=== PATIENT | female | born 1975 | race Caucasian/White ===

== ENCOUNTER → 2019-11-29 09:15 | Outpatient (BNVA) | payer OTHER, SELFPAY | PROVIDERS: Family Provider Nurse Practitioner; PCP Nurse Practitioner; Visit Provider Obstetrics & Gynecology | DX: Z01.419 Encounter for gynecological examination (general) (routine) without abnormal findings (principal); D06.9 Carcinoma in situ of cervix, unspecified; E89.40 Asymptomatic postprocedural ovarian failure | CPT/HCPCS: 88175 ==

== ENCOUNTER 2020-03-27 14:36 | Outpatient (CLI) | payer OTHER, SELFPAY ==
--- NOTE | 2020-03-27 14:42 | MM_ITS ---
WS: [id number] BILATERAL DIGITAL SCREENING MAMMOGRAPHY WITH CAD CLINICAL INFORMATION: SCREENING HISTORY: Screening mammogram. No current complaints. COMPARISON: TECHNIQUE: Bilateral CC and MLO views. FINDINGS: The breasts are composed of heterogeneous fibroglandular density tissue, which can limit the detectio n of small underlying mass lesions. No suspicious mass, asymmetry, calcifications, or architectural d istortion. No evidence of malignancy. MM/[id number] IMPRESSION: BI-RADS: 1-Negative FOLLOW UP: 1 Year Follow-up Recommend return to annual screening mammography.
== END 2020-03-27 14:37 | disposition home or self-care (01) ==
LOC: RADSHAW 14:41
PROVIDERS: PCP Nurse Practitioner; Visit Provider Obstetrics & Gynecology
DX: Z12.31 Encounter for screening mammogram for malignant neoplasm of breast (principal)
CPT/HCPCS: 77067

== ENCOUNTER → 2021-12-17 10:49 | Outpatient (BNVA) | payer OTHER, SELFPAY | PROVIDERS: PCP Nurse Practitioner; Visit Provider Obstetrics & Gynecology | DX: D06.9 Carcinoma in situ of cervix, unspecified (principal); N95.1 Menopausal and female climacteric states; Z12.39 Encounter for other screening for malignant neoplasm of breast | CPT/HCPCS: 87624 ==

== ENCOUNTER 2022-01-20 11:08 | Outpatient (CLI) | payer OTHER, SELFPAY ==
--- NOTE | 2022-01-20 11:22 | MM_ITS ---
WS: [id number] BILATERAL SCREENING DIGITAL BREAST TOMOSYNTHESIS MAMMOGRAM WITH CAD HISTORY: Z12.39 - Encounter for other screening for malignant neoplasm. COMPARISON: 03/27/2020, 018 Bilateral CC and MLO views with tomosynthesis and synthetic mammography submitted. Computer aided det ection analyzed. Breast composition: The breasts are heterogeneously dense, which may obscure small masses. No suspici ous masses, microcalcifications or architectural distortion. MM/[id number] IMPRESSION: BI-RADS: 1-Negative FOLLOW UP: 1 Year Follow-up
== END 2022-01-20 11:09 | disposition home or self-care (01) ==
PROVIDERS: PCP Nurse Practitioner; Visit Provider Obstetrics & Gynecology
DX: Z12.39 Encounter for other screening for malignant neoplasm of breast (principal)
CPT/HCPCS: 77063; 77067

== ENCOUNTER 2023-09-21 12:54 | Outpatient (CLI) | payer OTHER, SELFPAY ==
--- NOTE | 2023-09-21 13:08 | XRR_ITS ---
PROCEDURE INFORMATION: Exam: XR Left Wrist Exam date and time: 09/21/2023 1:10 PM Age: 47 years old Clinical indication: Pain; Wrist; Left; Additional info: Lt. Wrist pain TECHNIQUE: Imaging protocol: Radiologic exam of the left wrist. Views: 3 or more views. COMPARISON: No relevant prior studies available. FINDINGS: Bones/joints: Well-defined lucent lesion in the scaphoid, likely an intraosseous cyst. No acute fracture or dislocation. Joint spaces are preserved. Soft tissues: Normal. XR/XR wrist LT min 3V* [id number] IMPRESSION: No acute fracture or dislocation.
== END 2023-09-21 12:55 | disposition home or self-care (01) ==
LOC: RAD 12:55
PROVIDERS: PCP Nurse Practitioner; Visit Provider Nurse Practitioner Family
DX: M65.4 Radial styloid tenosynovitis [de Quervain] (principal); M25.532 Pain in left wrist
CPT/HCPCS: 73110

== ENCOUNTER 2024-02-17 20:49 | Emergency (ER) | payer OTHER, SELFPAY ==
--- NOTE | 2024-02-17 20:52 | XRR_ITS ---
PROCEDURE INFORMATION: Exam: XR Left Ankle Exam date and time: 02/17/2024 9:38 PM Age: 48 years old Clinical indication: Injury or trauma; Blunt trauma; Left; Patient HX: Patient sustained twisting injury to ankle due to falling off of porch. TECHNIQUE: Imaging protocol: Radiologic exam of the left ankle. Views: 3 or more views. COMPARISON: No relevant prior studies available. FINDINGS: Bones/joints: Chronic sclerotic calcification seen along inferior medial aspect of the talus on the AP view. Soft tissues: Normal. XR/XR ankle LT min 3V* [id number] IMPRESSION: No acute findings. Consider further evaluation with a CT scan if concern for fracture remains.
[2024-02-17 21:04] VITALS: BP 95/59; PULSE 105; RESP 18; TEMP 36.9; O2SAT 95; BMI 24.7
--- NOTE | 2024-02-17 21:18 | ED_ITS ---
HPI - Extremity Problem General: Chief complaint: Extremity Injury, Lower Stated complaint: Fell Left Ankle Injury Time Seen by Provider: 02/17/24 20:54 History of Present Illness: Patient is a 48-year-old female who comes into the emergency department complaining of left ankle pain approximately 2 hours prior to arrival. Patient states she jumped off a friend's porch and had an inversion ankle injury. She states she has taken Tylenol and has been icing since, but pain and swelling have only increased. She has remained ambulatory. When I ask her about history of previous fractures or injuries, she states I have bad ankles. No other symptoms to report at this time. She states the pain is primarily to the lateral malleolus with some radiation distally into the foot, currently is a sharp pain. MD Complaint: joint swelling and joint pain Onset (ago): hour(s) Pain Consistency: constant Location: left Quality: sharp Radiation: distal Relieving factors: cold therapy and rest Exacerbating factors: range of motion, weight bearing and palpation Associated symptoms: Reports no associated symptoms; Deny chest pain, fever(s) or rash Review of Systems General: Reports: 10 or more systems reviewed and unremarkable except in HPI and below Const: Denies: fever(s), chills or fatigue Eyes: Denies: change in vision ENMT: Denies: throat pain, ear or mastoid pain or nasal discharge Card: Denies: chest pain, palpitations, swelling of feet/ankles or lightheadedness Resp: Denies: dyspnea, productive cough or wheezing GI: Denies: abdominal pain, nausea, vomiting, diarrhea or constipation : Denies: flank pain, difficulty voiding, dysuria or urinary frequency Musc: Reports: joint pain and joint swelling; Denies: neck pain or back pain Skin/Breast: Denies: rash Neuro: Denies: headache(s), numbness in extremities or weakness in extremities PFSH ED PFSH: Medical History Well woman exam with routine gynecological exam Depression with anxiety Surgical menopause [facility] with BSO on 07/17/2018. Patient on ERT. Cervical intraepithelial neoplasia III Patient with STEPHAN-3 initially treated by [facility] and then [facility] in 07/17/2018. Surgical History History of total vaginal hysterectomy (07/17/18) With BSO. Dx: STEPHAN-3 of endocervix. [place] [facility] [place] History of conization of cervix (03/06/18) [facility]. Dx: STEPHAN-3 of endocervix. [place] Dr. Vasquez [place] [facility] [place]. History of tonsillectomy and adenoidectomy (~2002) History of tympanostomy (~1999) History of section, low transverse (08/10/98) Primary LTCS. Dx: Breech. Delivered by Dr. Farley at [facility] in [place], [place]. Family History Grandmother Heart disease maternal Diabetes maternal Uterine cancer maternal grandmother- 70's great maternal grandmother- 70's Ovarian cancer maternal great grandmother 70's Grandfather Hyperlipidemia maternal Father Hypertension Family/Other Uterine cancer maternal aunt 50's Denies family history of Colon cancer Clotting disorder Breast cancer Anesthesia complication Bleeding disorder Thyroid disease Stroke Social History Smoking and tobacco/nicotine status: never used tobacco/nicotine Alcohol intake: current Alcohol intake frequency: few times a month Substance/Drug Use: never Physical Exam Const: COMMON NORMALS: no acute distress, patient oriented x3 and no limitations GENERAL APPEARANCE: cooperative, comfortable and well developed ORIENTATION/CONSCIOUSNESS: Yes awake, Yes oriented to person, Yes oriented to place and Yes oriented to time HENMT: COMMON NORMALS: normocephalic, atraumatic and hearing grossly normal bilaterally HEAD & SCALP: normocephalic and atraumatic Eye: COMMON NORMALS: Equal, round and reactive pupils present, EOMs intact bilaterally and conjunctivae normal CONJUNCTIVA: Yes conjunctivae normal PUPIL: Yes Equal, round and reactive pupils present Neck/C-Spine: COMMON NORMALS: full ROM, supple and no JVD Resp: COMMON NORMALS: normal respiratory effort, No retractions, No use of accessory muscles and clear to auscultation bilaterally AUSCULTATION: clear to auscultation bilaterally Cardio: COMMON NORMALS: no JVD, regular rate, regular rhythm, No clicks present (Cardio), No murmurs present (Cardio) and No rub (Cardio) RATE: regular rate RHYTHM: regular rhythm Extremity: NARRATIVE EXTREMITY EXAM: The left lateral malleolus is edematous and tender to palpation. Small amount of bruising noted just posterior to the lateral malleolus. Antalgic gait noted on entry into the emergency department. Distal neurovascular status intact. Negative calcaneal squeeze and ankle squeeze. 2+ DP/PT pulses. Neuro: COMMON NORMALS: patient oriented x3, moves all extremities, no focal motor deficits and no sensory deficits noted SENSORIUM/ORIENTATION: Yes oriented to person, Yes oriented to place and Yes oriented to time Skin: COMMON NORMALS: no rashes or lesions noted GENERAL SKIN EXAM: no rashes or lesions noted Course Vital Signs: Vital signs: Vital Signs Temperature 98.4 F 02/17/24 21:04 Pulse Rate 105 H 02/17/24 21:04 Respiratory Rate 18 02/17/24 21:04 Blood Pressure 95/59 02/17/24 21:04 Pulse Oximetry 95 02/17/24 21:04 Oxygen Delivery Me thod Room Air 02/17/24 21:04 MDM - Extremity (Nontraumatic) Medical Decision Making Patient comes into the emergency department for left ankle injury a couple hours prior to arrival. She was ambulatory into the emergency department. Physical examination showed a swollen left foot at the lateral malleolus. X-ray of the ankle did not show any acute findings, and my suspicion at this time as patient is dealing with an ankle sprain, potentially high ankle sprain. She will be given crutches and instructed to be weightbearing as tolerated, and if her symptoms do not improve then she will follow-up with primary care for potential orthopedic referral. She will also enact RICE therapy and we will wrap her foot prior to discharge. Reasons to return were discussed and patient will be discharged home. Lab Data Radiology Impressions Ankle X-Ray 02/17/24 20:52 IMPRESSION: No acute findings. Consider further evaluation with a CT scan if concern for fracture remains. All radiology interpretation(s) finalized by discharge Discharge Plan Discharge Patient Disposition: Home Clinical Impression: Left ankle sprain Qualifiers: Encounter type: initial encounter Involved ligament of ankle: anterior talofibular ligament Qualified Code(s): S93.492A - Sprain of other ligament of left ankle, initial encounter Condition: Stable Prescriptions: No Action candesartan 8 mg tablet 8 mg PO DAILY estradiol 1 mg tablet 1.5 mg PO DAILY 30 Days Qty: 45 0RF Rx Instructions: increased to 1.5 mg daily on 12/17/2021 montelukast [Singulair] 10 mg tablet 10 mg PO DAILY ibuprofen 800 mg tablet 800 mg PO Q8H PRN alprazolam 0.5 mg tablet 0.25 mg PO .nightly Zyrtec 10 mg capsule 30 mg PO DAILY paroxetine HCl [Paxil] 20 mg tablet 30 mg PO DAILY metronidazole 500 mg tablet 500 mg PO BID 7 Days Qty: 14 0RF Discharge Orders: Discharge ED (Routine); Ordered 02/17/24 Ordered By: Romeo Sevilla Referrals: Sara Canales FNP [Primary Care Provider] - Discharge Diet: Usual diet Discharge Activity: Limit activity as instructed Patient Instructions: Ankle Sprain (ED) Activity Restrictions/Additional Instructions: Weightbearing as tolerated. Gently increase your range of motion with the left foot. Rest, ice, compression, and elevation. Take Tylenol or ibuprofen for pain. If your symptoms do not improve, please follow-up with primary care for orthopedic referral. Return with any new or worsening symptoms otherwise. Coding Level of Care Code ED Hemodialysis Patient Care Specialist for Javier Krishnamurthy
[2024-02-17] MEDS: ibuprofen 600 mg Tablet 800 MG PO (21:42)
== END 2024-02-17 23:02 | disposition home or self-care (01) ==
PROVIDERS: Emergency Provider Physician Assistant; PCP Nurse Practitioner Family
DX: S93.492A Sprain of other ligament of left ankle, initial encounter (principal); X50.1XXA Overexertion from prolonged static or awkward postures, initial encounter
CPT/HCPCS: 73610; 99283; E0114

== ENCOUNTER 2025-02-06 07:54 | Outpatient (CLI) | payer BC, SELFPAY ==
--- NOTE | 2025-02-06 07:56 | MM_ITS ---
WS: [id number] BILATERAL 3D TOMOSYNTHESIS DIGITAL SCREENING MAMMOGRAPHY WITH CAD CLINICAL INFORMATION: SCREENING HISTORY: Screening mammogram. No current complaints. COMPARISON: 2021 TECHNIQUE: Bilateral CC and MLO views. FINDINGS: The breasts are composed of heterogeneous fibroglandular density tissue, which can limit the detection of small underlying mass lesions. No suspicious mass, asymmetry, calcifications, or architectural distortion. No evidence of malignancy. MM/MM scr tomosynthesis [id number] IMPRESSION: DENSITY: The breasts are heterogeneously dense, which may obscure small masses. BI-RADS: 1 - Negative FOLLOW UP: 1 Year Follow-up Recommend return to annual screening mammography.
== END 2025-02-06 07:55 | disposition home or self-care (01) ==
PROVIDERS: PCP Nurse Practitioner Family; Visit Provider Nurse Practitioner Family
DX: Z12.31 Encounter for screening mammogram for malignant neoplasm of breast (principal)
CPT/HCPCS: 77063; 77067

== ENCOUNTER 2025-05-12 19:10 | Emergency (ER) | payer BC, SELFPAY ==
--- OUTSIDE RECORDS SUMMARY | 2025-05-12 19:18 | XMS_ITS | Clinical Summary ---
Author Organization [facility] Address [address] [place] [id number] Care Team Providers Care Alumni Relations Coordinator Name Role Phone Andrea Marina MD Primary Care Provider Allergies Active Allergy Reactions Criticality Noted Date Comments Sulfa (Sulfonamide Antibiotics) Rash Low 02/2011 Medications Norgestimate-Eth inyl estradiol (SPRINTEC, 28,) 0.25-35 mg-mcg Oral tablet Take 1 Tab by mouth daily. Active Atovaquone-Progu danette (MALARONE) 250-100 mg Oral TabIndications:P rophylactic antibiotic Take 1 Tab by mouth daily. 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 Gender Identity Not on file Sexual Orientation Not on file Last Filed Vital Signs Vital Sign Reading Time Taken Comments Blood Pressure 108/70 03/29/2011 3:25 PM CDT Pulse 68 02/14/2011 2:43 PM CDT Temperature 37.7 C (99.8 F) 03/29/2011 3:25 PM CDT Respiratory Rate 16 02/14/2011 2:43 PM CDT Oxygen Saturation - - Inhaled Oxygen Concentration - - Weight 55.8 kg (123 lb) 03/29/2011 3:25 PM CDT Height 160 cm (5' 3 ) 02/14/2011 2:43 PM CDT Body Mass Index 21.79 02/14/2011 2:43 PM CDT Plan of Treatment Health Maintenance Due Date Last Done Comments DTAP/TDAP/TD VACCINES (1 - Tdap) 1993 HEPATITIS B VACCINES (1 of 3 - 19+ 3-dose series) 12/11 HPV/Cotest (21-29) 12/30/1995 CERVICAL CANCER SCREENING 2004 HPV/Cotest (30-65) 2004 PAP SMEAR 2004 BREAST CANCER SCREENING 2014 COLORECTAL SCREENING 12/30/2019 Colorectal Cancer Screening 12/30/2019 FIT-DNA Q 3 years 12/30/2019 FIT/FOBT Q 1 year 12/30/2019 Flex Sig/CT Colonography Q 5 years 12/30/2019 ZOSTER VACCINE (1 of 2) 2024 INFLUENZA VACCINE (#1) 2025 Insurance [employer] Care Teams Alumni Relations Coordinator Relationship Specialty Start Date End Date Andrea Marina MD PCP - General Family Practice 03/28/11
--- OUTSIDE RECORDS SUMMARY | 2025-05-12 19:18 | XMS_ITS | Clinical Summary ---
Author Organization [facility] Address [address] Attn: Epic Prelude ADT [place] [id number] Care Team Providers Care Deburring Technician Name Role Phone Andrea Marina MD Primary Care Provider [phone] Allergies Active Allergy Reactions Criticality Noted Date Comments Sulfa (Sulfonamide Antibiotics) Rash Low 02/2011 Medications ALPRAZolam (XANAX) 0.5 mg tablet TAKE 1 TABLET BY MOUTH AT BEDTIME NEEDED FOR INSOMNIA MUST LAST 30 DAYS 01/12/2022 Active candesartan (ATACAND) 8 mg Tablet Take 8 mg by mouth daily. 02/07/2022 Active estradioL (ESTRACE) 1 mg tablet Take 1 mg by mouth daily. 02/01/2022 Active montelukast (SINGULAIR) 10 mg tablet Take 10 mg by mouth late in the day. 12/09/2021 Active PARoxetine HCl (PAXIL) 30 mg tablet Take 30 mg by mouth daily. 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 Immunizations Immunization Administration Dates Next Due Meningococcal A Conjugate Vaccine IM 02/23/2011 Family History Medical History Relation Name Comments Cataract Maternal Grandfather Diabetes Maternal Grandfather Hypertension Maternal Grandfather Macular Degen Maternal Grandfather Stroke Maternal Grandfather Cancer Maternal Grandmother Amblyopia Neg Hx Blindness Neg Hx Corneal Dystrophies Neg Hx Detachment/Tears Neg Hx Fuchs' dystrophy Neg Hx Glaucoma Neg Hx [place] Neg Hx Seizures Neg Hx Strabismus Neg Hx Thyroid Disease Neg Hx Relation Name Status Comments Maternal Grandfather Maternal Grandmother Social History Tobacco Use Types Packs/Day Years Used Date Smoking Tobacco: Never Smokeless Tobacco: Never Alcohol Use Standard Drinks/Week Comments Yes 0 (1 standard drink = 0.6 oz pur e alcohol) Comments Unknown Sex and Gender Information Value Date Recorded Sex Assigned at Not on file 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
[2025-05-12 19:22] VITALS: BP 127/81; PULSE 84; RESP 16; TEMP 36.7; O2SAT 97; BMI 24.7
--- NOTE | 2025-05-12 19:38 | CTR_ITS ---
PROCEDURE INFORMATION: Exam: CT Cervical Spine Without Contrast Exam date and time: 05/12/2025 7:45 PM Age: 49 years old Clinical indication: Injury or trauma; Fall; Blunt trauma TECHNIQUE: Imaging protocol: Computed tomography of the cervical spine without contrast. Radiation optimization: All CT scans at this facility use at least one of these dose optimization techniques: automated exposure control; mA and/or kV adjustment per patient size (includes targeted exams where dose is matched to clinical indication); or iterative reconstruction. COMPARISON: CT head wo con* [id number] 05/12/2025 7:45 PM RADIATION DOSE METRICS: Total DLP (mGy-cm): 187.4 FINDINGS: Bones: No acute fracture. Normal alignment. No significant disc bulge or herniation. No severe spinal canal stenosis. No significant neural foraminal narrowing. Lungs: Lung apices are normal. Soft tissues: Unremarkable. CT/CT cervical spin wo con* [id number] IMPRESSION: No acute cervical spine fracture.
--- NOTE | 2025-05-12 19:39 | CTR_ITS ---
PROCEDURE INFORMATION: Exam: CT Head Without Contrast Exam date and time: 05/12/2025 7:45 PM Age: 49 years old Clinical indication: Pain and injury or trauma; Fall; Blunt trauma (contusions or hematomas); Headache; Injury details: Fell from horse TECHNIQUE: Imaging protocol: Computed tomography of the head without contrast. Radiation optimization: All CT scans at this facility use at least one of these dose optimization techniques: automated exposure control; mA and/or kV adjustment per patient size (includes targeted exams where dose is matched to clinical indication); or iterative reconstruction. COMPARISON: CT cervical spin wo con* [id number] 05/12/2025 7:45 PM RADIATION DOSE METRICS: Total DLP (mGy-cm): 1137.7 FINDINGS: Brain: Normal. No hemorrhage. Unremarkable white matter. No mass effect. Cerebral ventricles: No ventriculomegaly. Paranasal sinuses: Visualized sinuses are unremarkable. No fluid levels. Mastoid air cells: Visualized mastoid air cells are well aerated. Bones: Unremarkable. No acute fracture. Soft tissues: Unremarkable. CT/CT head wo con* [id number] IMPRESSION: No acute intracranial abnormality.
--- NOTE | 2025-05-12 19:59 | ED_ITS ---
HPI - Neck Pain/Injury 2 General: Chief Complaint: Neck Pain/Injury Stated Complaint: Fell of horse, Neck & RT arm Pain Time Seen by Provider: 05/12/25 19:24 History of Present Illness: 49-year-old female who fell from a horse complaining of neck and right arm pain. She fell around 530 p.m. Patient is complaining of right arm pain but she can freely move the arm. She denies any chest or abdominal pain or injury. Her biggest complaint is her neck. Patient does smell strongly of alcohol. Related Data Home Medications ?Medication ?Instructions ?Recorded ?Confirmed ibuprofen 800 mg tablet 800 mg PO Q8H PRN 11/29/19 0 12/17/21 montelukast 10 mg tablet 10 mg PO DAILY 11/29/1905/02 (Singulair) alprazolam 0.5 mg tablet 0.25 mg PO .nightly 12/17/21 12/17/21 candesartan 8 mg tablet 8 mg PO DAILY 12/17/2112/17 cetirizine 10 mg capsule (Zyrtec) 30 mg PO DAILY 12/1712/17/21 paroxetine HCl 20 mg tablet (Paxil) 30 mg PO DAILY 05/0212/17/21 Previous Rx's ?Medication ?Instructions ?Recorded estradiol 1 mg tablet 1.5 mg (1.5 x 1 mg) PO DAILY 30 12/17/21 days #45 tabs metronidazole 500 mg tablet 500 mg PO BID 7 days #14 t abs 12/21/21 Allergies Allergy/AdvReac Type Severity Reaction Status Date / Time Sulfa (Sulfonamide Allergy rash Verified 12/17/21 10:16 Antibiotics) Review of Systems 2 Const: Denies: fever(s) or chills Card: Denies: chest pain Resp: Denies: dyspnea GI: Denies: abdominal pain : Denies: dysuria, urinary frequency or urinary urgency Musc: Reports: neck pain and extremity pain (Right arm); Denies: back pain Skin/Breast: Denies: rash PFSH ED 2 PFSH: Medical History Well woman exam with routine gynecological exam Depression with anxiety Surgical menopause TVH with BSO on 07/17/2018. Patient on ERT. Cervical intraepithelial neoplasia III Patient with STEPHAN-3 initially treated by [facility] and then [facility] in 07/17/2018. Surgical History History of total vaginal hysterectomy (07/17/18) With BSO. Dx: STEPHAN-3 of endocervix. Performed by Dr. Vasquez at [facility] and [place], [place]. History of conization of cervix (03/06/18) [facility]. Dx: STEPHAN-3 of endocervix. Performed by Dr. Vasquez at [facility] in [place], [place]. History of tonsillectomy and adenoidectomy (~2002) History of tympanostomy (~1999) History of section, low transverse (08/10/98) Primary LTCS. Dx: Breech. Delivered by Dr. Farley at [facility] in [place], [place]. Family History Grandmother Heart disease maternal Diabetes maternal Uterine cancer maternal grandmother- 70's great maternal grandmother- 70's Ovarian cancer maternal great grandmother 70's Grandfather Hyperlipidemia maternal Father Hypertension Family/Other Uterine cancer maternal aunt 50's Denies family history of Colon cancer Clotting disorder Breast cancer Anesthesia complication Bleeding disorder Thyroid disease Stroke Social History Smoking and tobacco/nicotine status: never used tobacco/nicotine Alcohol intake: current Alcohol intake frequency: few times a month Substance/Drug Use: never Physical Exam 2 Const: GENERAL APPEARANCE: cooperative ORIENTATION/CONSCIOUSNESS: Yes awake, Yes oriented to person, Yes oriented to place and Yes oriented to time HENMT: COMMON NORMALS: normocephalic, atraumatic and hearing grossly normal bilaterally HEAD & SCALP: normocephalic and atraumatic Resp: COMMON NORMALS: normal respiratory effort, No retractions, No use of accessory muscles and clear to auscultation bilaterally AUSCULTATION: clear to auscultation bilaterally Cardio: COMMON NORMALS: regular rate, regular rhythm and No murmurs present (Cardio) RATE: regular rate RHYTHM: regular rhythm GI: COMMON NORMALS: Soft to palpation and No hepatosplenomegaly present A USCULTATION: Yes normoactive bowel sounds PALPATION: Yes Soft to palpation, No Tenderness to palpation present (GI), No Guarding due to palpation present (GI) and Yes No hepatosplenomegaly present Extremity: COMMON NORMALS: normal to inspection, capillary refill normal, no clubbing, cyanosis or edema, no calf tenderness and no pedal edema Neuro: SENSORIUM/ORIENTATION: Yes oriented to person, Yes oriented to place and Yes oriented to time Skin: COMMON NORMALS: no rashes or lesions noted GENERAL SKIN EXAM: no rashes or lesions noted Course 2 Vital Signs: Vital signs: Vital Signs Temperature 98.1 F 05/12/25 19:22 Pulse Rate 79 05/12/25 21:41 Respiratory Rate 16 05/12/25 19:22 Blood Pressure 114/81 05/12/25 21:00 Pulse Oximetry 95 05/12/25 21:41 Oxygen Delivery Me thod Room Air 05/12/25 21:30 MDM - Neck Pain/Injury Medical Decision Making Labs and imaging reviewed no acute findings other than patient is acutely intoxicated which she readily admits to. She has some mild neck's comfort she can use ibuprofen for this. Encouraged to consider abstinence especially when participating in activities with a high fall risk. Medical Records I reviewed the patient's medical records. Lab Data I reviewed the patient's lab results. 05/12/25 19:59 05/12/25 19:59 Radiology Impressions Cervical Spine CT 05/12/25 19:38 IMPRESSION: No acute cervical spine fracture. Head CT 05/12/25 19:39 IMPRESSION: No acute intracranial abnormality. Humerus X-Ray 05/12/25 20:00 IMPRESSION: No acute findings. Elbow X-Ray 05/12/25 20:04 IMPRESSION: No acute findings. Laboratory Results WBC 6.60 10^3/uL (3.29-11.43) 05/12/25 19:59 RBC 4.10 10^6/uL (3.85-5.65) 05/12/25 19:59 Hgb 12.80 g/dL (11.27-16.99) 05/12/25 19:59 Hct 37.4 % (36-47) 05/12/25 19:59 MCV 91.2 fl (85-98) 05/12/25 19:59 MCH 31.2 pg (27-33) 05/12/25 19:59 MCHC 34.2 g/dL (30-55) 05/12/25 19:59 RDW 13.2 % (12.1-15.1) 05/12/25 19:59 Plt Count 310 10^3/cmm (157-399) 05/12/25 19:59 MPV 9.6 fL (7.4-10.4) 05/12/25 19:59 Neut % (Auto) 74.4 % 05/12/25 19:59 Lymph % (Auto) 18.0 % 05/12/25 19:59 [place] % (Auto) 5.5 % 05/12/25 19:59 Eos % (Auto) 0.6 % 05/12/25 19:59 Baso % (Auto) 1.2 % 05/12/25 19:59 Neut # (Auto) 4.91 10^3/uL (1.8-7.7) 05/12/25 19:59 Lymph # (Auto) 1.2 10^3/uL (0.8-4.8) 05/12/25 19:59 [place] # (Auto) 0.4 10^3/uL (0.2-0.9) 05/12/25 19:59 Eos # (Auto) 0.0 10^3/uL (0.0-0.8) 05/12/25 19:59 Baso # (Auto) 0.1 10^3/uL (0.0-0.1) 05/12/25 19:59 Nucleated RBC % (auto) 0 % 05/12/25 19:59 Nucleated RBCs # 0.0 /100WBC 05/12/25 19:59 Sodium 127 mmol/L (136-145) L 05/12/25 19:59 Potassium 4.4 mmol/L (3.5-5.1) 05/12/25 19:59 Chloride 94 mmol/L (98-107) L 05/12/25 19:59 Carbon Dioxide 20 mmol/L (22-29) L 05/12/25 19:59 Anion Gap 17.4 (5-19) 05/12/25 19:59 BUN 12 mg/dL (6-20) 05/12/25 19:59 Creatinine 0.7 mg/dL (0.5-0.9) 05/12/25 19:59 GFR Calculation 88.6 mL/min (90-130) L 05/12/25 19:59 Glucose 83 mg/dL (65-115) 05/12/25 19:59 Calculated Osmolality 263 mOsm/kg (285-295) L 05/12/25 19:59 Calcium 8.3 mg/dL (8.5-10.5) L 05/12/25 19:59 Total Bilirubin 0.2 mg/dL (0.15-1.2) 05/12/25 19:59 AST 22 U/L (0-32) 05/12/25 19:59 ALT 12 U/L (0-33) 05/12/25 19:59 Alkaline Phosphatase 49 U/L (35-105) 05/12/25 19:59 Total Protein 7.3 g/dL (6.6-8.7) 05/12/25 19:59 Albumin 4.5 g/dL (3.5-5.2) 05/12/25 19:59 Globulin 2.8 g/dL (1.3-4.6) 05/12/25 19:59 Urine Color Yellow (Yellow) 05/12/25 20:46 Urine Appearance Clear (CLEAR) 05/12/25 20:46 Urine pH 5.5 (5-7) 05/12/25 20:46 Ur Specific [place] 1.004 (1.005-1.030) L 05/12/25 20:46 Urine Protein Negative (Negative) 05/12/25 20:46 Urine Glucose (UA) Negative (Normal) 05/12/25 20:46 Urine Ketones Negative (Negative) 05/12/25 20:46 Urine Blood Negative (Negative) 05/12/25 20:46 Urine Nitrate Negative (Negative) 05/12/25 20:46 Urine Bilirubin Negative (Negative) 05/12/25 20:46 Urine Urobilinogen 0.2 mg/dL (Negative) 05/12/25 20:46 Ur Leukocyte Esterase Negative (Negative) 05/12/25 20:46 Urine RBC 0-2 /hpf (0-2) 05/12/25 20:46 Urine WBC 0-5 /hpf (0-5) 05/12/25 20:46 Ur Squamous Epith Cells 0-5 /hpf (0-5) 05/12/25 20:46 Amorphous Sediment Not Reportable 05/12/25 20:46 Urine Bacteria None seen /hpf (NONE) 05/12/25 20:46 Hyaline Casts 0-4 /lpf H 05/12/25 20:46 Ethyl Alcohol 177 mg/dL (0-10) H 05/12/25 19:59 All radiology interpretation(s) finalized by discharge Discharge Plan Discharge Patient Disposition: Home Clinical Impression: Strain of neck muscle, Fall from horse, Alcohol intoxication Condition: Stable Prescriptions: No Action candesartan 8 mg tablet 8 mg PO DAILY estradiol 1 mg tablet 1.5 mg PO DAILY 30 Days Qty: 45 0RF Rx Instructions: increased to 1.5 mg daily on 12/17/2021 montelukast [Singulair] 10 mg tablet 10 mg PO DAILY ibuprofen 800 mg tablet 800 mg PO Q8H PRN alprazolam 0.5 mg tablet 0.25 mg PO .nightly Zyrtec 10 mg capsule 30 mg PO DAILY paroxetine HCl [Paxil] 20 mg tablet 30 mg PO DAILY metronidazole 500 mg tablet 500 mg PO BID 7 Days Qty: 14 0RF Discharge Orders: Discharge ED (Routine); Ordered 05/12/25 Ordered By: Keith Rowley Referrals: Parker,Sara, TABULATING SUPERVISOR [Primary Care Provider, Nurse Practitioner] Discharge Diet: Usual diet Discharge Activity: Resume usual activity Patient Instructions: Opioid Safety, Pain Management, Patient Portal & [place] Instructions Activity Restrictions/Additional Instructions: Thank you for choosing [facility] for your healthcare needs today. It is very important that you follow up as instructed or that you return to the Emergency Department should you have concerns or if your condition changes or worsens in any way. Emergency department visits are focused on emergent conditions, in some cases you may require further evaluation on an outpatient basis. You were seen after a fall from a horse. CT of your head and neck were negative your other labs were unremarkable with the exception of your blood alcohol which was significantly elevated. (Please note that included in your discharge packet is information concerning opioid safety and pain management. This information is given to all patients were discharged from the ER regardless of their discharge diagnosis or the medicines they usually take or are prescribed.) Print Language: Djiboutian Coding Level of Care Code ED Competitive Intelligence Manager for Javier Krishnamurthy
--- NOTE | 2025-05-12 20:00 | XRR_ITS ---
PROCEDURE INFORMATION: Exam: XR Right Humerus Exam date and time: 05/12/2025 8:04 PM Age: 49 years old Clinical indication: Injury or trauma; Fall; Blunt trauma (contusions or hematomas); Arm, upper; Right TECHNIQUE: Imaging protocol: Radiologic exam of the right humerus. Views: 2 or more views. COMPARISON: CT cervical spin wo con* [id number] 05/12/2025 7:45 PM FINDINGS: Bones/joints: Normal. Soft tissues: Normal. XR/[place] [id number] IMPRESSION: No acute findings.
--- NOTE | 2025-05-12 20:04 | XRR_ITS ---
PROCEDURE INFORMATION: Exam: XR Right Elbow Exam date and time: 05/12/2025 8:06 PM Age: 49 years old Clinical indication: Injury or trauma; Fall; Blunt trauma (contusions or hematomas); Elbow; Right; Additional info: Pain TECHNIQUE: Imaging protocol: Radiologic exam of the right elbow. Views: 3 or more views. COMPARISON: CR (UP EXM, ) 05/12/2025 8:04 PM FINDINGS: Bones/joints: Normal. Soft tissues: Normal. XR/XR elbow RT min 3V* [id number] IMPRESSION: No acute findings.
[2025-05-12 20:16] LABS: Hematocrit 37.4 % (36-47); Hemoglobin 12.80 g/dL (11.27-16.99); Mean Corpuscular HGB Conc 34.2 g/dL (30-55); Mean Corpuscular Hemoglobin 31.2 pg (27-33); Mean Corpuscular Volume 91.2 fl (85-98); Nucleated Red Blood Cells % 0 %; Platelet Count 310 10^3/cmm (157-399); Red Blood Count 4.10 10^6/uL (3.85-5.65); White Blood Count 6.60 10^3/uL (3.29-11.43)
[2025-05-12 20:35] LABS: Alanine Aminotransferase 12 U/L (0-33); Albumin Level 4.5 g/dL (3.5-5.2); Alcohol Level 177 mg/dL (0-10); Alkaline Phosphatase 49 U/L (35-105); Anion Gap 17.4 (5-19); Aspartate Amino Transferase 22 U/L (0-32); Blood Urea Nitrogen 12 mg/dL (6-20); Calcium 8.3 mg/dL (8.5-10.5); Carbon Dioxide 20 mmol/L (22-29); Chloride 94 mmol/L (98-107); Creatinine Clr Calc Pharmacy 86.2768; Globulin 2.8 g/dL (1.3-4.6); Glucose 83 mg/dL (65-115); Osmolality Calculated 263 mOsm/kg (285-295); Potassium 4.4 mmol/L (3.5-5.1); Sodium 127 mmol/L (136-145); Total Protein 7.3 g/dL (6.6-8.7)
[2025-05-12 20:55] VITALS: BP 112/73; PULSE 72; O2SAT 96
[2025-05-12 21:00] VITALS: BP 114/81; PULSE 68; O2SAT 98
[2025-05-12 21:09] LABS: Glucose Urine UA Negative (Normal); Nitrate Urine Negative (Negative); Specific Gravity, Urine 1.004 (1.005-1.030)
[2025-05-12 21:15] LABS: Add Urine Microscopic? YES
[2025-05-12 21:30] VITALS: PULSE 72; O2SAT 96
[2025-05-12 21:41] VITALS: PULSE 79; O2SAT 95
== END 2025-05-12 21:43 | disposition home or self-care (01) ==
PROVIDERS: Emergency Provider Family Medicine; PCP Nurse Practitioner Family
DX: S16.1XXA Strain of muscle, fascia and tendon at neck level, initial encounter (principal); F10.129 Alcohol abuse with intoxication, unspecified; Y90.6 Blood alcohol level of 120-199 mg/100 ml; V80.010A Animal-rider injured by fall from or being thrown from horse in noncollision accident, initial encounter
CPT/HCPCS: 36415; 70450; 72125; 73060; 73080; 80053; 80307; 81001; 85025; 99284